=== PATIENT | male | born 1990 | race Two or more races ===

== ENCOUNTER 2022-07-16 10:54 | Emergency (ER) | payer MEDICAID, OTHER ==
[~2022-07-16] VITALS: Ht 167.6 cm; Wt 91.9 kg
[2022-07-16 11:38] VITALS: BP 135/69
[2022-07-16] MEDS ORDERED: IBUP600T28 PO (11:41)
[2022-07-16] MEDS ORDERED: IBUPROFEN 600 MG TAB PO ONE (11:45)
[2022-07-16] MEDS ORDERED: TETANUS-DIPTH-ACEL PERTUSSIS 0.5ML SYR Tdap IM ONE (11:45)
== END 2022-07-16 12:05 | disposition home or self-care (01) ==
LOC: ER 10:54
DX: S50.02XA Contusion of left elbow, initial encounter (principal); W18.09XA Striking against other object with subsequent fall, initial encounter; Y93.89 Activity, other specified; Y92.89 Other specified places as the place of occurrence of the external cause; Y99.8 Other external cause status
CPT/HCPCS: 73080; 90471; 90715